=== PATIENT | male | born 1985 | race Hispanic/Latino ===

== ENCOUNTER 2025-01-20 12:09 | Emergency (ER) | payer SELFPAY ==
[~2025-01-20] VITALS: Ht 165.1 cm; Wt 80.7 kg
--- NOTE | 2025-01-20 13:08 | EKG ---
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
--- NOTE | 2025-01-20 13:21 | ERN ---
General Chief Complaint: Back Pain-No Injury Stated Complaint: BACK PAIN,NUMBNESS ON LOWER LIP Time Seen by MD: 12:12 Source: patient History of Present Illness Initial Comments Patient is a 39-year-old gentleman coming in to be evaluated for upper and lower back pain. Patient states that the back pain began a couple of days ago in the upper back pain began yesterday. He states that when he flexes and extends the pain is exacerbated. He also states that the pain is exacerbated with deep breaths. No fever or chills. Allergies: Coded Allergies: No Known Allergies (Unverified Allergy, Unknown, 01/20/25) Past Medical History Past Medical History: MO Past Surgical History: None ROS Dictation CONSTITUTIONAL: No chills, no fever, no weakness, no diaphoresis, no malaise. HEAD/FACE: No signs of trauma. EENT: No eye pain, no blurred vision, no tearing, no double vision, no ear pain, no ear discharge, no nose pain, no nasal congestion, no throat pain, no throat swelling, no mouth pain. RESPIRATORY: No cough, no orthopnea, no SOB, no stridor, no wheezing. CARDIOVASCULAR: No chest pain, no edema, no palpitations, no syncope. GASTROINTESTINAL/ABDOMINAL: No abdominal pain, no constipation, no diarrhea, no nausea, no vomiting. GENITOURINARY: No abnormal discharge, no dysuria, no frequent urination, no hematuria. No complaints of pain in the genitals. MUSCULOSKELETAL: No back pain, no gout, no joint pain, no joint swelling, no muscle pain, no muscle stiffness, no neck pain. INTEGUMENTARY: No change in color, no change in hair/nails, no dryness, no lesion, no lumps, no rash. NEUROLOGICAL/PSYCH: No anxiety, not depressed, no emotional problem, no h eadache, no numbness, no pre-existing deficit, no history of seizures, no tremors, no weakness. HEMATOLOGIC/LYMPHATIC: Not anemic, no history of blood clots, no apparent bleeding, no bruising, glands not swollen. All Systems Negative, Except as Noted. Physical Exam Physical Exam Dictation VITAL SIGNS: Reviewed. GENERAL APPEARANCE: Alert, oriented x3, no acute distress, obese. HEAD AND FACE: Non-traumatic. EYES: PERRL, pink conjunctivas, eyelid no trauma, anterior chamber clear. EARS: Pinnas intact and no signs of trauma or erythema. Ear canals clear and no discharge. TMs no erythema. NOSE: No discharge, no bleeding. OROPHARYNX: Mouth normal, teeth no caries, tongue pink. Pharynx clear, no erythema. Tonsils no exudates, no abscesses noted. Mucous membrane moist. NECK: Supple, non-tender, no thyromegaly, no masses, no JVD, no bruits. BREAST: Deferred. CHEST: No tenderness, no crepitus, no paradoxical movement, no retractions. LUNGS: Clear, well-ventilated, symmetric, no rales, no wheezing, no rhonchi, no stridor, good breath sounds bilaterally. HEART: Regular rate, regular rhythm, no murmur, no gallops. VASCULAR: No peripheral edema. ABDOMEN: Soft, positive bowel sounds, nondistended, no guarding, nontender, no rebound, no masses no hepatomegaly, no splenomegaly, no Sprague's sign, no hernias. RECTAL: Deferred. GENITAL: Deferred. NEUROLOGICAL: Normal speech, gross motor function intact, gross sensory function intact. MUSCULOSKELETAL: Neck nontender, full range of motion, back nontender, full range of motion. EXTREMITIES: Nontender, full range of motion. SKIN: Color pink, dry, no turgor, no rash, no lacerations, no abrasions, no contusions. LYMPHATICS: Deferred. Results Laboratory and Microbiology Lab and Micro Result Laboratory Tests Test 01/20/25 13:20 01/20/25 13:53 White Blood Count 10.7 K/uL (4.8-10.8) Red Blood Count 5.51 MIL/uL (4.50-6.20) Hemoglobin 16.0 g/dL (14.0-18.0) Hematocrit 46.1 % (42-54) Mean Corpuscular Volume 83.7 fL (79-99) Mean Corpuscular Hemoglobin 29.0 pg (27.0-33.0) Mean Corpuscular Hemoglobin Concent 34.7 g/dL (32.0-36.0) Red Cell Distribution Width 13.1 % (11.0-15.5) Platelet Count 304 K/uL (130-400) Mean Platelet Volume 9.1 fL (7.5-10.5) Immature Granulocyte % (Auto) 0.5 % (0-1) Neutrophils (%) (Auto) 69.8 % (40.0-77.0) Lymphocytes (%) (Auto) 21.1 % (21.0-51.0) Monocytes (%) (Auto) 6.4 % (3.0-13.0) Eosinophils (%) (Auto) 1.7 % (0.0-8.0) Basophils (%) (Auto) 0.5 % (0.0-5.0) Neutrophils # (Auto) 7.5 K/uL (1.8-7.7) Lymphocytes # (Auto) 2.3 K/uL (1.0-4.8) Monocytes # (Auto) 0.7 K/uL (0.1-1.0) Eosinophils # (Auto) 0.18 K/uL (0.00-0.70) Basophils # (Auto) 0.05 K/uL (0.00-0.20) Absolute Immature Granulocyte (auto 0.05 K/uL (0-1) Nucleated Red Blood Cells 0.0 % (0.0-0.19) Prothrombin Time 10.2 SEC (9.6-11.6) Prothromb Time International Ratio 0.96 (0.85-1.15) Activated Partial Thromboplast Time 27.6 SEC (26.3-35.5) Sodium Level 133 mmol/L (136-145) L Potassium Level 3.4 mmol/L (3.5-5.1) L Chloride Level 97 mmol/L (101-111) L Carbon Dioxide Level 33 mmol/L (21-32) H Blood Urea Nitrogen 12 mg/dL (7-18) Creatinine 0.9 mg/dL (0.5-1.3) Glomerular Filtration Rate Calc 111 mL/min (>90) Random Glucose 104 mg/dL (70-105) Total Calcium 9.0 mg/dL (8.5-10.1) Magnesium Level 2.00 mg/dL (1.80-2.40) Total Creatine Kinase 27 U/L (21-232) Troponin I High Sensitivity 16 ng/L (4-75) B-Type Natriuretic Peptide < 5 pg/mL (0-100) Urine Color LIGHT-YELLOW (YELLOW) Urine Appearance CLEAR (CLEAR) Urine pH 6.5 (5.0-8.0) Urine Specific [place] 1.021 (1.001-1.031) Urine Protein NEGATIVE mg/dL (NEGATIVE) Urine Glucose (UA) NEGATIVE mg/dL (NEGATIVE) Urine Ketones NEGATIVE mg/dL (NEGATIVE) Urine Occult Blood NEGATIVE (NEGATIVE) Urine Nitrate NEGATIVE (NEGATIVE) Urine Bilirubin NEGATIVE mg/dL (NEGATIVE) Urine Urobilinogen 0.2 mg/dL (0.2-1.0) Urine Leukocyte Esterase NEGATIVE Eliane/uL Labs Reviewed?: Yes EKG/XRAY/US/CT/MRI EKG Comment 01/10/2025 time 1:06 p.m. Ventricular rate 81 Sinus rhythm [place] [address] wave elevation or depression X-RAY Comment Chest x-ray-NAD MDM MDM: Differential diagnosis: Muscle strain, muscle spasm, back pain, pneumonia, Patient is a 39-year-old male coming in to be evaluated for upper back pain. Patient states that the upper back pain began earlier today. He states that the pain is exacerbated with movement. Laboratory workup negative for acute findings. Patient did receive some antispasmodics anti-inflammatory states he feels better. Patient will be discharged in stable condition with a diagnosis of acute back spasms. ED Course Orders Procedure Category Date Status Time Cbc With Differential LAB 01/20/25 Complete 12:34 Prothrombin Time With LAB 01/20/25 Complete INR 12:34 B-Type Natriuretic LAB 01/20/25 Complete Peptide 12:34 Chest 1vw RAD 01/20/25 Taken 12:34 12 Lead Ekg Tracing- EKG 01/20/25 Resulted Technical 12:34 Magnesium LAB 01/20/25 Complete 12:34 Creatine Kinase, Total LAB 01/20/25 Complete 12:34 Troponin I High LAB 01/20/25 Complete Sensitivity 12:34 Urinalysis Profile LAB 01/20/25 Complete 12:34 Partial LAB 01/20/25 Complete Thromboplastin Time 12:34 Basic Metabolic Panel LAB 01/20/25 Complete 12:34 Orphenadrine Citrate PHA 01/20/25 Complete (Norflex) 15:00 Ketorolac PHA 01/20/25 Complete Tromethamine 30mg/Ml 15:00 Current Medications Medications (Trade) Dose Ordered Sig/Kayla Route PRN Reason Start Time Stop Time Status Last Admin Dose Admin Ketorolac Tromethamine (toRADol) 30 mg ONCE ONCE IM 01/20/25 15:00 01/20/25 15:01 DC 01/20/25 15:07 Orphenadrine Citrate (Norflex) 60 mg ONCE ONCE IM 01/20/25 15:00 01/20/25 15:01 DC 01/20/25 15:08 Vital Signs Date Time Temp Pulse Resp B/P (MAP) Pulse Ox O2 Delivery O2 Flow Rate FiO2 01/20/25 15:08 78 16 125/74 97 Room Air* 0 21 01/20/25 13:48 98.4 84 16 128/80 97 Room Air* 0 21 01/20/25 12:56 85 16 113/76 99 Room Air* 0 21 01/20/25 12:15 98.4 88 16 134/88 97 Room Air 0 DX & DISP Disposition: Discharge Departure Impression: Primary Impression: Back pain Additional Impression: Muscle spasm Condition: Stable Scripts Methocarbamol (Robaxin) 750 Mg Tab 1 TAB PO BID for 5 Days, #10 TAB 0 Refills Prov: GENE GIBSON MD 01/20/25 Naproxen (Naproxen) 500 Mg Tablet 1 TAB PO BID for pain for 7 Days, #14 TAB 0 Refills Prov: GENE GIBSON MD 01/20/25 Additional Instructions: FOLLOW-UP WITH PRIMARY CARE PROVIDER IN 1 TO 2 DAYS. TAKE MEDICATIONS DIRECTED HERE IN THE EMERGENCY ROOM. OKAY TO CONTINUE HOME MEDICATIONS UNLESS OTHERWISE DISCUSSED DURING YOUR VISIT IN THE EMERGENCY ROOM TODAY. RETURN TO YOUR NEAREST EMERGENCY ROOM IF SYMPTOMS WORSEN OR IF THERE IS NO IMPROVEMENT. CALL 911 IF YOU NEED IMMEDIATE ASSISTANCE. TAKE TYLENOL [id number] NEEDED AND IF NO CONTRAINDICATIONS ARE PRESENT. INCREASE ORAL HYDRATION. A WOUND CULTURE OR URINE CULTURE WAS ORDERED HERE IN THE EMERGENCY ROOM DEPARTMENT PLEASE FOLLOW-UP WITH PRIMARY CARE PROVIDER AND ADVISE THEM TO GET REPEAT PORTS FROM OUR FACILITY. IF YOU HAD ANY VIDYA WRAP/SPLINTS THAT WERE APPLIED HERE, PLEASE DO NOT REMOVE THEM UNTIL YOU SEE YOUR PRIMARY CARE OR SPECIALTY. Referrals: Referrals: SELF,REFERRAL (PCP) LIZZ GRANADOS MD Time of Disposition: 15:30 GENE GIBSON MD Jan 20, 2025 13:21
[2025-01-20 13:32] LABS: BASOPHILS # (AUTO) 0.05 K/uL (0.00-0.20); BASOPHILS % (AUTO) 0.5 % (0.0-5.0); EOSINOPHILS # (AUTO) 0.18 K/uL (0.00-0.70); EOSINOPHILS % (AUTO) 1.7 % (0.0-8.0); HEMATOCRIT 46.1 % (42-54); IMMATURE GRANULOCYTE ABSOLUTE 0.05 K/uL (0-1); LYMPHOCYTES # (AUTO) 2.3 K/uL (1.0-4.8); LYMPHOCYTES % (AUTO) 21.1 % (21.0-51.0); MEAN CORPUSCULAR HGB CONC 34.7 g/dL (32.0-36.0); MEAN CORPUSCULAR VOLUME 83.7 fL (79-99); MONOCYTES # (AUTO) 0.7 K/uL (0.1-1.0); MONOCYTES % (AUTO) 6.4 % (3.0-13.0); NEUTROPHILS # (AUTO) 7.5 K/uL (1.8-7.7); NEUTROPHILS % (AUTO) 69.8 % (40.0-77.0); PLATELET COUNT (AUTO) 304 K/uL (130-400); RED BLOOD CELL COUNT(AUTO) 5.51 MIL/uL (4.50-6.20); RED CELL DISTRIBUTION WIDTH 13.1 % (11.0-15.5); WHITE BLOOD COUNT (AUTO) 10.7 K/uL (4.8-10.8)
[2025-01-20 13:41] LABS: INR 0.96 (0.85-1.15); PROTHROMBIN TIME 10.2 SEC (9.6-11.6)
[2025-01-20 13:43] LABS: PARTIAL THROMBOPLASTIN TIME 27.6 SEC (26.3-35.5)
[2025-01-20 13:44] LABS: CREATININE 0.9 mg/dL (0.5-1.3); POTASSIUM 3.4 mmol/L (3.5-5.1)
[2025-01-20 13:48] VITALS: TEMP 98.4
[2025-01-20 14:05] LABS: APPEARANCE,URINE CLEAR (CLEAR); BILIRUBIN,URINE NEGATIVE (NEGATIVE); COLOR,URINE LIGHT-YELLOW (YELLOW); GLUCOSE, URINE (UA) NEGATIVE (NEGATIVE); KETONES,URINE NEGATIVE (NEGATIVE); LEUKOCYTE ESTERASE ,URINE NEGATIVE Leu/uL (NEGATIVE); NITRATE,URINE NEGATIVE (NEGATIVE); OCCULT BLOOD,URINE NEGATIVE (NEGATIVE); PH,URINE 6.5 (5.0-8.0); PROTEIN,URINE NEGATIVE (NEGATIVE); UROBILINOGEN,URINE 0.2 mg/dL (0.2-1.0)
[2025-01-20 14:08] LABS: B-TYPE NATRIURETIC PEPTIDE < 5 pg/mL (0-100)
[2025-01-20 14:10] LABS: ADD UA MICROSCOPIC NO
[2025-01-20] MEDS: ketOROlac 30MG VIAL (30MG/ML) IM ONE (15:07)
[2025-01-20] MEDS: ORPHENADRINE 60MG/2ML IM ONE (15:08)
[2025-01-20] MEDS ORDERED: METH-662 PO (15:32)
[2025-01-20] MEDS ORDERED: NAPR-1194 PO (15:32)
--- NOTE | 2025-01-20 16:04 | HMCIMG ---
Exam Type: CHEST 1VW Clinical Information: cp Comparison: None Findings: The lungs are clear of infiltrates. The heart is normal in size. The bony and soft tissue structures of the chest are unremarkable. Impression: Clear lungs.
[2025-01-20 16:05] VITALS: BP 107/70; PULSE 70; RESP 16; O2SAT 96
== END 2025-01-20 16:11 | disposition home or self-care (01) ==
LOC: EDH 12:09
DX: M54.6 Pain in thoracic spine (principal); M62.838 Other muscle spasm
CPT/HCPCS: 99285; 71045; 82550; 83735; 84484; 80048; 83880; 85025; 85610; 85730; 81003; 36415; 96372 ×2; 93005; J1885; J2360